=== PATIENT | male | born 1945 | race Caucasian/White ===

== ENCOUNTER 2017-07-21 16:23 | Emergency (ER) | payer MEDICARE, OTHER ==
[2017-07-21 16:39] VITALS: TEMP 97.7
[2017-07-21 17:16] LABS: BASO # 0.1 K/uL (0.0-0.2); BASO % 0.6 % (0.0-2.0); EOS # 0.1 K/uL (0.0-0.7); EOS % 0.7 % (0.0-4.0); HEMATOCRIT 43.7 % (35.0-51.0); LYMPH # 0.9 K/uL (1.0-4.3); LYMPH % 8.1 % (20.0-40.0); MEAN CELL VOLUME 87.6 fl (80.0-94.0); MEAN CORPUSCULAR HEMOGLOBIN 28.8 pg (27.0-31.0); MEAN CORPUSCULAR HGB CONC 32.9 g/dL (33.0-37.0); MEAN PLATELET VOLUME 7.4 fl (7.2-11.7); MONO # 0.4 K/uL (0.0-0.8); NEUT # 9.4 K/uL (1.8-7.0); NEUT % 86.6 % (50.0-75.0); PLATELET COUNT 207 K/uL (130-400); WHITE BLOOD COUNT 10.8 K/uL (4.8-10.8)
[2017-07-21 17:22] LABS: ALKALINE PHOSPHATASE 89 U/L (38-126); ALT/SGPT 36 U/L (21-72); AST/SGOT 27 U/L (17-59); BILIRUBIN,TOTAL 0.5 mg/dl (0.2-1.3); BLOOD UREA NITROGEN 12 mg/dl (9-20); CALCIUM 9.2 mg/dL (8.4-10.2); CARBON DIOXIDE 24 mmol/L (22-30); CHLORIDE 93 mmol/L (98-107); GFR AFRICAN-AMERICAN > 60; GLUCOSE,RANDOM 173 mg/dL (75-110); POTASSIUM 4.4 MMOL/L (3.6-5.0); SODIUM 132 mmol/l (132-148); TOTAL PROTEIN 8.4 G/DL (6.3-8.2)
[2017-07-21 17:28] VITALS: RESP 17
[2017-07-21] MEDS ORDERED: EnalaprilAT 1.25 mg/ml Inj IV ONE (17:34)
[2017-07-21] MEDS ORDERED: EnalaprilAT 1.25 mg/ml Inj ONE (17:40)
[2017-07-21 17:41] LABS: ALB/GLOB RATIO 1.3 (1.0-2.1)
[2017-07-21 18:31] VITALS: O2SAT 98
[2017-07-21 19:26] VITALS: BP 175/90; PULSE 80
[2017-07-21 19:34] LABS: BASOPHIL 1 % (0-2); EOSINOPHIL 1 % (0-7); NEUTROPHIL 82 % (42-75); TOTAL CELLS COUNTED 100
--- NOTE | 2017-07-21 19:47 | ED PDOC ---
HPI: Abdomen Time Seen by Provider: 07/21/17 16:56 Chief Complaint (Nursing): Dizziness/Lightheaded Chief Complaint (Provider): abdominal pain/dizziness History Per: Patient History/Exam Limitations: no limitations Associated Symptoms: Nausea, Constipation. denies: Fever, Chills, Vomiting, Diarrhea, Loss Of Appetite, Back Pain, Chest Pain, Urinary Symptoms Additional Complaint(s): 71yo M with DM, HTN in ER c/o 2years of constipation 2 years of neck pain 2 years for nausea without vomiting intermittent made worse with sever constipation and 2 years of intermittent dizziness. states all symptoms are worsened with severely constipated. does not take medication for constipation. hx of diverticulitis. Pt deniesnvomiting fever chills abd pain or urge to move his BM. (-) obstipation. Past Medical History Reviewed: Historical Data, Nursing Documentation, Vital Signs Vital Signs: Last Vital Signs Temp 97.7 F 07/21/17 16:34 Pulse 80 07/21/17 19:25 Resp 17 07/21/17 19:25 BP 175/90 H 07/21/17 19:25 Pulse Ox 98 07/21/17 19:25 - Medical History PMH: Back Problems, CAD, Diabetes (type II), HTN, Hypercholesterolemia Denies: Chronic Kidney Disease - Surgical History Surgical History: CABG - Family History Family History: States: Unknown Family Hx - Immunization History Hx Tetanus Toxoid Vaccination: No Hx Influenza Vaccination: No Hx Pneumococcal Vaccination: No - Home Medications Home Medications: Ambulatory Orders Medication Instructions Recorded Aspirin [Ecotrin] 81 mg PO DAILY 10/04/16 Carvedilol 12.5 mg PO BID 10/04/16 Docusate [Colace] 100 mg PO DAILY #10 cap 10/04/16 Finasteride [Proscar] 5 mg PO DAILY 10/04/16 Gabapentin [Neurontin] 100 mg PO BID 10/04/16 Linagliptin [Tradjenta] 5 mg PO DAILY 10/04/16 MetFORMIN [glucOPHAGE] 1,000 mg PO BID 10/04/16 Nitroglycerin [Nitrostat] 0.4 mg SL PRN 10/04/16 [id number] Ethyl Esters [OMEGA 3] 1,000 mg PO BID 10/04/16 Polyethylene Glycol 3350 [Miralax] 17 gm PO DAILY #270 ml 10/04/16 Ranolazine [Ranexa] 1,000 mg PO BID 10/04/16 Rosuvastatin Calcium [Crestor] 10 mg PO HS 10/04/16 Tamsulosin [Flomax] 0.4 mg PO DAILY 10/04/16 Valsartan [Diovan] 160 mg PO DAILY 10/04/16 - Allergies Allergies/Adverse Reactions: Allergies Allergy/AdvReac Type Severity Reaction Status Date / Time bacitracin Allergy RASH Verified 10/04/16 03:17 benzocaine Allergy RASH Verified 10/04/16 03:17 Review of Systems ROS Statement: Except As Marked, All Systems Reviewed And Found Negative Respiratory: Negative for: Cough, Shortness of Breath Gastrointestinal: Positive for: Nausea, Constipation. Negative for: Vomiting, Abdominal Pain, Diarrhea, Melena, Hematochezia, Hematemesis, Rectal Pain Physical Exam - Reviewed Nursing Documentation Reviewed: Yes Vital Signs Reviewed: Yes - Physical Exam Appears: Positive for: Well, Non-toxic, No Acute Distress. Negative for: In Acute Distress Skin: Positive for: Normal Color, Warm, DRY Eye Exam: Positive for: EOMI, Normal appearance, PERRL Cardiovascular/Chest: Positive for: Regular Rate, Rhythm Respiratory: Positive for: CNT, Normal Breath Sounds Gastrointestinal/Abdominal: Positive for: Normal Exam, Bowel Sounds, Soft. Negative for: Tenderness, Organomegaly, Mass, Distended, Guarding Back: Positive for: Normal Inspection Extremity: Positive for: Normal ROM Neurologic/Psych: Positive for: Alert, Oriented - Laboratory Results Result Diagrams: 07/21/17 17:09 07/21/17 17:09 - ECG O2 Sat by Pulse Oximetry: 98 - Progress ED Course And Treament: BP elevated in ER . took his BP meds today. will treat HTN in ER and labs/abd xray. 07/21/17 07/21/17 17:09 17:09 WBC 10.8 RBC 4.98 Hgb 14.3 Hct 43.7 MCV 87.6 MCH 28.8 MCHC 32.9 L RDW 14.0 Plt Count 207 MPV 7.4 Neut % (Auto) 86.6 H Lymph % (Auto) 8.1 L Me[place] % (Auto) 4.0 Eos % (Auto) 0.7 Baso % (Auto) 0.6 Neut # 9.4 H Lymph # 0.9 L Meeker # 0.4 Eos # 0.1 Baso # 0.1 Neutrophils % (Manual) 82 H Band Neutrophils % 2 Lymphocytes % (Manual) 9 L Monocytes % (Manual) 5 Eosinophils % (Manual) 1 Basophils % (Manual) 1 Toxic Granulation Present Platelet Estimate Normal Sodium 132 Potassium 4.4 Chloride 93 L Carbon Dioxide 24 Anion Gap 19 BUN 12 Creatinine 0.9 Est GFR ( Amer) > 60 Est GFR (Non-Af Amer) > 60 Random Glucose 173 H Calcium 9.2 Total Bilirubin 0.5 AST 27 ALT 36 Alkaline Phosphatase 89 Troponin I < 0.0120 Total Protein 8.4 H Albumin 4.8 Globulin 3.6 Albumin/Globulin Ratio 1.3 Medical Decision Making Medical Decision Making: pt xray: constipation. Fleet enema inER-pt move BM and feels better. Pt BP improved in ER . Pt stable for d/.c Temp Pulse Resp BP Pulse Ox 97.7 F 80 17 175/90 H 98 07/21/17 16:34 07/21/17 19:25 07/21/17 19:25 07/21/17 19:25 07/21/17 19:46 Disposition - Clinical Impression Clinical Impression: Constipation, Dizziness - Patient ED Disposition Is Patient to be Admitted: No Counseled Patient/Family Regarding: Need For Followup - Disposition Disposition: Routine/Home Disposition Time: 19:53 Condition: STABLE Instructions: Constipation (ED) Print Language: SWEDISH
--- NOTE | 2017-07-22 08:26 | CARD ---
APPROVED REPORT EKG Measurement Heart [id number] <Conclusion> Normal sinus rhythm Possible Left atrial enlargement Borderline ECG
--- NOTE | 2017-07-22 08:45 | RAD ---
HISTORY: abdominal pain COMPARISON: CT scan of the abdomen and pelvis dated 04/14/2016 FINDINGS: BOWEL: Normal. No obstruction. No free air. BONES: Degenerative changes. OTHER FINDINGS: None. IMPRESSION: No active disease.
== END 2017-07-21 20:24 | disposition home or self-care (01) ==
LOC: H.ER 16:23
DX: R42 Dizziness and giddiness (principal); K59.00 Constipation, unspecified; E11.9 Type 2 diabetes mellitus without complications; E78.00 Pure hypercholesterolemia, unspecified; I10 Essential (primary) hypertension; I25.10 Atherosclerotic heart disease of native coronary artery without angina pectoris; Z79.82 Long term (current) use of aspirin; Z79.84 Long term (current) use of oral hypoglycemic drugs; Z95.1 Presence of aortocoronary bypass graft